=== PATIENT | male | born 1995 | race Caucasian/White ===

== ENCOUNTER 2020-05-18 01:06 | Emergency (ER) | payer SELFPAY ==
[~2020-05-18] VITALS: Ht 182.9 cm; Wt 77.3 kg
[~2020-05-18 01:06] MED LIST: MULTIPLE VITAMI1 CAP PO; MVI; NO HOME MEDICATIONS; WATER PILL; [UNRECOGNIZED DRUG - REMARK]
[2020-05-18 01:08] VITALS: BP 126/78; TEMP 97.8
[2020-05-18] MEDS ORDERED: CLEOCIN HCL300 MG PO (01:25)
[2020-05-18 02:15] VITALS: PULSE 48
== END 2020-05-18 02:15 | disposition home or self-care (01) ==
LOC: COL.ER 01:06
DX: K04.7 Periapical abscess without sinus (principal); F17.200 Nicotine dependence, unspecified, uncomplicated; Z79.82 Long term (current) use of aspirin
CPT/HCPCS: J1885